=== PATIENT | male | born 1985 | race Caucasian/White ===

== ENCOUNTER 2018-07-09 01:26 | Inpatient (IN) | payer OTHER ==
[2018-07-09] VITALS (13 sets, daily range): BP systolic 125–169; BP diastolic 75–146
[~2018-07-09] VITALS: Ht 175.3 cm; Wt 78.5 kg
[2018-07-09] MEDS ORDERED: PROPRANOLOL 1010 MG (01:37)
[2018-07-09] MEDS ORDERED: LIORESAL 10 MG10 MG (01:37)
[2018-07-09] MEDS ORDERED: GABAPENTIN 100100 MG PO (01:37)
[2018-07-09] MEDS ORDERED: LIPITOR10 MG PO (01:37)
[2018-07-09] MEDS ORDERED: NORVASC2.5 MG PO (01:38)
[2018-07-09] MEDS ORDERED: QUETIAPINE FUM100 MG (01:38)
[2018-07-09] MEDS ORDERED: PRILOSEC 10MG C10 MG PO (01:38)
[2018-07-09] MEDS ORDERED: MYSOLINE50 MG (01:39)
[2018-07-09 01:46] LABS: HEMOGLOBIN 14.1 gm/dL (14.0-18.0); NUCLEATED RBCS 0 /100WBC
[2018-07-09 01:47] LABS: MCH 39.5 pg (26.0-34.0); MCHC 36.1 g/dL (28.0-37.0); MCV 109.3 fL (80.0-100.0); MPV 9.1 fl. (7.2-11.1); PLATELET COUNT* 105 thou/uL (150-400); RBC 3.57 mil/uL (4.50-6.00); RDW-CV 13.9 % (10.5-14.5); WBC 8.6 thou/uL (4.0-11.0)
[2018-07-09 01:54] LABS: CALCIUM 8.8 mg/dL (8.5-10.1); CREATININE 0.6 mg/dL (0.6-1.3)
[2018-07-09 01:58] LABS: ALBUMIN 2.7 g/dL (3.4-5.0); INR 1.1; TOTAL BILIRUBIN 4.8 mg/dL (<0.1-1.0); TOTAL PROTEIN 7.8 g/dL (6.4-8.2)
[2018-07-09 02:00] LABS: POTASSIUM 2.4 mmol/L (3.5-5.1)
[2018-07-09 02:45] LABS: ABSOLUTE LYMPHOCYTES 0.7 thou/uL (0.8-5.3); ABSOLUTE MONOCYTES 0.4 thou/uL (0.0-1.2); ABSOLUTE NEUTROPHILS 7.5 thou/uL (1.6-8.1); ANISOCYTOSIS 1+; PLATELET ESTIMATE DECREASED
[2018-07-09 02:46] LABS: MACROCYTES 1+; TOXIC GRANULATION 1+
[2018-07-09 06:11] LABS: URINE BLOOD TRACE (Negative); URINE CLARITY CLEAR; URINE COLOR YELLOW; URINE GLUCOSE-RANDOM NEGATIVE (Negative); URINE KETONES 1+ (Negative); URINE LEUKOCYTES-REFLEX NEGATIVE (Negative); URINE NITRITE-REFLEX NEGATIVE (Negative); URINE PROTEIN 2+ (Negative); URINE SPECIFIC GRAVITY <= 1.005 (1.005-1.030)
[2018-07-09 06:13] LABS: ICTOTEST (BILI CONFIRMATORY) Positive (Negative); URINE BILIRUBIN 2+ (Negative)
[2018-07-09 06:18] LABS: AMP/METHAMP Negative (Negative); BARBITURATES Negative (Negative); BENZODIAZEPINES Negative (Negative); COCAINE Negative (Negative); METHADONE Negative (Negative); OPIATES Negative (Negative); PCP Negative (Negative); THC Negative (Negative)
[2018-07-09 06:33] LABS: BACTERIA-REFLEX 1-9 Few /HPF (None Seen); CASTS None Seen /LPF (None Seen); CRYSTALS None Seen /LPF (None Seen); MUCUS 4-6 Moderate strn/LPF (None Seen); SQUAMOUS 0-3 Few /LPF (0-3); URINE RBC 0-2 Rare /HPF (0-2); URINE WBC-REFLEX 0-5 Rare /HPF (0-5)
--- NOTE | 2018-07-09 07:24 | NUR ---
RECEIVED REPORT FROM ED RN BJ AT 0345. PT ARRIVED TO UNIT AT 0400. 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 INITIAL CIWA SCORE: 10. SCHEDULED AND PRN ATIVAN ADMINISTERED. PT ORIENTED TO ROOM AND CALL LIGHT. HOURLY ROUNDING COMPLETED. CALL LIGHT WITHIN REACH. FALL PRECAUTIONS IN PLACE.
--- NOTE | 2018-07-09 16:56 | NUR ---
ASSUMED PT CARE REPORT RECEIVED FROM NIGHT NURSE. PT IS AOX2 CONFUSED, HALLUCINATING, AGITATED , AND HAVING MODERATE TREMORS. HEART RATE IN THE 140S 150S, BP STABLE SEE CHART. SEIZURE PRECAUTION IN PLACE. 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 PT WAS GIVEN ATIVAN Q30 MINUTES. SITTER IN ROOM FOR SAFETY REASON. 4 SIDERAILS UP. BANANA BAG AND IV FLUID INFUSING ORDERED. IV MAGNESIUM AND PO K REPLACEMENT GIVEN TO PT. LAB WILL BE CHECKED AGAIN IN THE MORNING. PROPALONOL WAS GIVEN FOR INCREASED HEART RATE. CIWA 20 THIS AM. Q HOUR VS CHARTED FROM THE FIRST 8 HOURS AFTER ADMISSIONS SEE CHART. PT THEN SLEPT AFTER FIFTH DOSE OF ATIVAN. NO MORE ATIVN GIVEN PT IS SLEEPING. PT AROUSED AT MEAL TIME . POOR APPETITE. IV LEVAQUIN WAS GIVEN LATER IN THE AM PT HAS MANY IV MEDICINE INFUSING AT ONCE. PRIMIDONE NOT AVAILABLE IN [place] AT TIME OF ORDER. PHARMACY WAS NOTIFIED. NO SIGNS OF AGITATION NOTED DURING AFTERNOON TIME. WILL CONTINUE TO MONITOR PT.
[2018-07-10] VITALS (18 sets, daily range): BP systolic 109–159; BP diastolic 74–111
--- NOTE | 2018-07-10 03:07 | NUR ---
PT ALERT OREIENTED. UP TO BED, BSC AND RECLINER. ATIVAN Q 3 MIN AT TIMES. NPO AT NM FOR ABD US.
[2018-07-10 05:07] LABS: ABSOLUTE LYMPHOCYTES 0.6 thou/uL (0.8-5.3); ABSOLUTE MONOCYTES 0.6 thou/uL (0.0-1.2); ABSOLUTE NEUTROPHILS 5.9 thou/uL (1.6-8.1); BASOPHILS 0.2 %; EOSINOPHILS 0.6 %; HEMATOCRIT 33.6 % (42.0-52.0); MCH 39.7 pg (26.0-34.0); MCHC 35.1 g/dL (28.0-37.0); MCV 113.2 fL (80.0-100.0); MONOCYTES 8.6 %; MPV 9.6 fl. (7.2-11.1); NUCLEATED RBCS 0 /100WBC; PLATELET COUNT* 100 thou/uL (150-400); POLYS 82.6 %; RBC 2.96 mil/uL (4.50-6.00); WBC 7.1 thou/uL (4.0-11.0)
--- NOTE | 2018-07-10 05:10 | NUR ---
PT CONTINUED WITH CIWA 12. ATIVAN WAS BEING GIVEN Q 30 MIN. SECURITY CALLED TWICE. DR JOHNSON NOTIFIED. VINCE ORDERED. PT RESTING QUIETLY NOW.
[2018-07-10 05:18] LABS: INR 1.1; PROTIME 10.8 Seconds (9.20-11.50)
[2018-07-10 05:23] LABS: HEMOGLOBIN 11.8 gm/dL (14.0-18.0)
[2018-07-10 05:36] LABS: ALBUMIN 2.2 g/dL (3.4-5.0); CALCIUM 7.8 mg/dL (8.5-10.1); CREATININE 0.5 mg/dL (0.6-1.3); MAGNESIUM 2.3 mg/dL (1.8-2.4); TOTAL BILIRUBIN 3.4 mg/dL (<0.1-1.0); TOTAL PROTEIN 6.3 g/dL (6.4-8.2)
[2018-07-10 05:49] LABS: POTASSIUM 2.9 mmol/L (3.5-5.1)
[2018-07-10 06:01] LABS: % SATURATION 30 % (20-39); IRON 52 ug/dL (50-175)
[2018-07-10 06:41] LABS: MACROCYTES 2+
[2018-07-10 06:42] LABS: PLATELET ESTIMATE DECREASED
--- NOTE | 2018-07-10 07:00 | NUR ---
AM K+ 2.9. POTASSIUM PROTOCAL STARTED. IVPB 20MEQ BAG 1ST OF 6 STARTED.
--- NOTE | 2018-07-10 09:03 | NUR ---
Pt agitated today, will f/u later
--- NOTE | 2018-07-10 10:26 | NUR ---
ASSUMED PT CARE REPORT RECEIVED FROM NURSE PT IS SLEEPING. VSS TAKEN. PT THEN WOKE UP WITH AGITATION AND INCREASES RESPIRATION. ATIVAN GIVEN X2 Q30 MINUTES ORDERED. SECOND BAG OF POTASSIUM GIVEN, IV FLUID STARTED WELL BANANA BAG. LEVAQUIN INFUSING AT THIS MOMENT. SITTER IN ROOM. PT IS INCONTINENT. 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 NPO STATUS MAINTAINED. NO PO MEDICINE GIVEN THIS AM. REPORT GIVEN TO ICU NURSE. PT TO GO TO ICU BED 8.
--- NOTE | 2018-07-10 10:47 | NUR ---
PT TRANSFERED TO ICU IN BED ACCOMPANIED BY 2 NURSING STAFF MEMBERS ON RA, 4 SIDE RAILS UP SEIZURE PRECAUTION.
[2018-07-10 11:10] LABS: IgG 896 mg/dL (700-1600); IgM 83 mg/dL (20-172)
--- NOTE | 2018-07-10 12:39 | EKG ---
[place] [address] ELECTROCARDIOGRAM REPORT Name: EVELYN AGUILA Room: [address] IN ..#: [id number] Admission: 07/09/18 Attend Phys: Tomi Banks MD Discharge: Date of : 81 Report #: [id number] THIS REPORT FOR: //name// [facility] ED Test Date: 2018-07-09 Test Time: 01:30:55 Pat Name: EVELYN AGUILA Department: Room: [facility] Gender: M Trouble Shooter: ADA : 1985 Requested By: Luz Washington Order Number: [id number] MD: Alejo Martinez Measurements Intervals [place] Rate: 118 P: 71 [place]: 156 QRS: 40 QRSD: 95 T: 22 QT: 341 QTc: 478 Interpretive Statements Sinus tachycardia Probable left atrial enlargement Probable anterolateral infarct, old Baseline wander in lead(s) II,III,aVR,aVL,aVF No previous ECG available for comparison Electronically Signed On 07-10-2018 12:39:39 CDT by Alejo Martinez [email or web address] <ELECTRONICALLY SIGNED> By: Alejo Martinez MD, [facility] 07/10/18 1239 0130 0130 Alejo Martinez MD, [facility] /EPI
[2018-07-10 15:09] LABS: HEPATITIS B SURFACE AG Negative (Negative)
--- NOTE | 2018-07-10 17:07 | 2DMMODE ---
[place] [address] 2 D/M-MODE ECHOCARDIOGRAM Name: EVELYN AGUILA Room: [address] IN [facility]#: [id number] Admission: 07/09/18 Attend Phys: Tomi Banks, Discharge: Date of : 81 Date of Service: 07/10/18 1706 Report #: [id number] THIS REPORT FOR: //name// APPROVED REPORT Study performed: 07/10/2018 15:22:16 EXAM: Comprehensive 2D, Doppler, and color-flow Echocardiogram Patient Location: In-Patient Room #: [facility] Status: routine BSA: 1.88 HR: 97 bpm BP: 141/97 mmHg Rhythm: NSR Other Information Study Quality: Good Indications Chest Pain 2D Dimensions IVSd: 10.29 (7-11mm) LVOT Diam: 19.88 (18-24mm) LVDd: 47.26 mm PWd: 9.98 (7-11mm) Ascending Ao: 31.88 (22-36mm) LVDs: 32.49 (25-40mm) Aortic Root: 34.12 mm Volumes Left Atrial Volume (Systole) LA ESV Index: 12.20 mL/m2 Aortic Valve AoV Peak Vernon.: 1.25 m/s AO Peak Gr.: 6.30 mmHg LVOT Max P.05 mmHg AO Mean Gr.: 3.54 mmHg LVOT Mean P.36 mmHg LVOT Max V: 1.33 m/s AO V2 VTI: 19.71 cm LVOT Mean V: 0.83 m/s DAVI (VTI): 3.61 cm2 LVOT V1 VTI: 22.92 cm Mitral Valve E/A Ratio: 0.75 MV Decel. Time: 93.45 ms MV E Max Vernon.: 0.68 m/[place] [address] 2 D/M-MODE ECHOCARDIOGRAM Name: EVELYN AGUILA Room: [address] IN [facility].#: [id number] Admission: 07/09/18 Attend Phys: Tomi Banks, Discharge: Date of : 81 Date of Service: 07/10/18 1706 Report #: [id number] MV PHT: 27.10 ms MVA (PHT): 8.12 cm2 TDI E/Lateral E': 5.23 E/Medial E': 7.56 Medial E' Vernon.: 0.09 m/s Lateral E' Vernon.: 0.13 m/s Pulmonary Valve PV Peak Vernon.: 0.97 m/s PV Peak Gr.: 3.73 mmHg Left Ventricle The left ventricle is normal size. There is normal LV segmental wall motion. There is normal left ventricular wall thickness. Left ventricular systolic function is normal. The left ventricular ejection fraction is within the normal range. LVEF is 60-65%. Grade I - abnormal relaxation pattern. Right Ventricle The right ventricle is normal size. The right ventricular systolic function is normal. Atria The left atrium size is normal. The right atrium size is normal. Aortic Valve The aortic valve is normal in structure. No aortic regurgitation is present. There is no aortic valvular stenosis. Mitral Valve The mitral valve is normal in structure. There is no mitral valve regurgitation noted. No evidence of mitral valve stenosis. Tricuspid Valve The tricuspid valve is normal in structure. There is no tricuspid valve regurgitation noted. Pulmonic Valve The pulmonary valve is normal in structure. There is no pulmonic valvular regurgitation. Great Vessels The aortic root is normal in size. IVC is normal in size and collapses >50% [place] [address] 2 D/M-MODE ECHOCARDIOGRAM Name: EVELYN AGUILA Room: [address]#: [id number] Admission: 07/09/18 Attend Phys: Tomi Banks, Discharge: Date of : 81 Date of Service: 07/10/18 1706 Report #: [id number] Pericardium There is no pericardial effusion. <Conclusion> The left ventricle is normal size. There is normal left ventricular wall thickness. Left ventricular systolic function is normal. The left ventricular ejection fraction is within the normal range. LVEF is 60-65%. Grade I - abnormal relaxation pattern. The right ventricle is normal size. The left atrium size is normal. The aortic valve is normal in structure. The mitral valve is normal in structure. The tricuspid valve is normal in structure. IVC is normal in size and collapses >50% with inspiration. There is no pericardial effusion. There is normal LV segmental wall motion. <ELECTRONICALLY SIGNED> By: Alejo Martinez MD, [facility] 07/10/18 1706 05 05 Alejo Martinez MD, FACC /INF
--- NOTE | 2018-07-10 18:10 | NUR ---
PATIENT CIWAS REMAIN HIGH AT THIS TIME. MANY DOSES OF ATIVAN GIVEN PER PROTOCOL. FLUIDS INFUSING. SITTER AT BEDSIDE FOR SAFTEY, PATIENT CONTINUOUSLY CRAWLING OUT OF BED, VERY UNSTEADY. HIGH FALL PRECAUTIONS IN PLACE, CALL LIGHT IN REACH.
--- NOTE | 2018-07-10 18:47 | NUR ---
UNABLE TO COMPLETE CTA OF CHEST DUE TO PATIENT BEING AGITATED, RESTLESS AND UNABLE TO SIT STILL FOR PROCEDURE. WILL TRY AGAIN TOMORROW.
[2018-07-11] VITALS (16 sets, daily range): BP systolic 106–145; BP diastolic 67–104
[2018-07-11 05:28] LABS: ABSOLUTE EOSINOPHILS 0.1 thou/uL (0.0-0.7); ABSOLUTE LYMPHOCYTES 1.3 thou/uL (0.8-5.3); ABSOLUTE MONOCYTES 1.1 thou/uL (0.0-1.2); ABSOLUTE NEUTROPHILS 3.8 thou/uL (1.6-8.1); BASOPHILS 0.6 %; EOSINOPHILS 1.9 %; HEMATOCRIT 33.6 % (42.0-52.0); HEMOGLOBIN 11.7 gm/dL (14.0-18.0); MCH 39.2 pg (26.0-34.0); MCHC 34.7 g/dL (28.0-37.0); MCV 112.9 fL (80.0-100.0); MONOCYTES 16.9 %; MPV 8.9 fl. (7.2-11.1); NUCLEATED RBCS 1 /100WBC; PLATELET COUNT* 118 thou/uL (150-400); POLYS 60.6 %; RBC 2.98 mil/uL (4.50-6.00); WBC 6.3 thou/uL (4.0-11.0)
[2018-07-11 06:06] LABS: ALBUMIN 2.2 g/dL (3.4-5.0); CALCIUM 8.5 mg/dL (8.5-10.1); CREATININE 0.5 mg/dL (0.6-1.3); MAGNESIUM 1.7 mg/dL (1.8-2.4); POTASSIUM 3.4 mmol/L (3.5-5.1); TOTAL BILIRUBIN 2.8 mg/dL (<0.1-1.0); TOTAL PROTEIN 6.6 g/dL (6.4-8.2)
--- NOTE | 2018-07-11 06:33 | NUR ---
ASSUMED CARE AT 1915H. PT ON BED BUT MOST OF THE TIME WANT TO GET OUT OF BED. PT STILL CONFUSED AND WITH VISUAL HALLUCINTION NOTED. LATEST CIWA - 25 AND LORAZEPAM AND HALDOL GIVEN TO CALM PT.WITHDRAWAL MONITORING CONTINUE.
[2018-07-11 10:28] LABS: MAGNESIUM 1.9 mg/dL (1.8-2.4); POTASSIUM 3.4 mmol/L (3.5-5.1)
--- NOTE | 2018-07-11 12:45 | NUR ---
PATIENT REMIANS ALERT TO SELF ONLY WITH CONFUSION. PATIENT DOES HAVE SOME HALLUCINATIONS THAT HAVE BEEN NOTICED THIS SHIFT. PATIENT CAN BECOME VERY AGITATED QUICKLY. ATIVAN AND HALDOL GIVEN. PATIENT STARTED BACK ON ORAL MEDICATIONS. SEROQUEL GIVEN AND IS VERY EFFECTIVE. PATIENT RESTING AT THIS TIME WITH EYES CLOSED. PATIENT TOLERATED GOING FOR CTA AND PA/LAT XRAY COMPLETE WITHOUT DIFFICULTY. PREVIOUS CIWA 25. SITTER AT BEDSIDE. NO FURTHER CONCERNS AT THIS TIME. WILL CONTINUE TO MONITOR AND CARE PER PLAN OF CARE.
[2018-07-11 16:06] LABS: CERULOPLASMIN 23.9 mg/dL (16.0-31.0)
[2018-07-12] VITALS (20 sets, daily range): BP systolic 100–135; BP diastolic 74–97
--- NOTE | 2018-07-12 00:04 | NUR ---
TRANSFERED PT ROOM 6 CLOSER TO NURSING STATION PT IS DROWSY AND CONFUSED, ASKING ABOUT HIS CIGARETTES. PT IS CALM AT BUT FORGETFULL. WILL MONITOR PT.
[2018-07-12 04:45] LABS: HEMATOCRIT 34.8 % (42.0-52.0); MCH 39.2 pg (26.0-34.0); MCHC 34.5 g/dL (28.0-37.0); MCV 113.5 fL (80.0-100.0); MPV 8.9 fl. (7.2-11.1); RBC 3.06 mil/uL (4.50-6.00); RDW-CV 13.9 % (10.5-14.5); WBC 7.7 thou/uL (4.0-11.0)
[2018-07-12 05:04] LABS: ALBUMIN 2.2 g/dL (3.4-5.0); CALCIUM 8.7 mg/dL (8.5-10.1); CREATININE 0.6 mg/dL (0.6-1.3); MAGNESIUM 1.6 mg/dL (1.8-2.4); PHOSPHORUS* 2.5 mg/dL (2.5-4.9); POTASSIUM 3.7 mmol/L (3.5-5.1); TOTAL BILIRUBIN 2.5 mg/dL (<0.1-1.0); TOTAL PROTEIN 6.6 g/dL (6.4-8.2)
--- NOTE | 2018-07-12 07:13 | NUR ---
Pt has been calm and cooperative but forgetfull, attemped to get out of bed couple of times stating that he was going to smoke, pt can re-direct easily, ciwa score 6 t0 8 overnight, po ativan given this am. MG level low and being replaced currently.
[2018-07-12 10:21] LABS: MAGNESIUM 1.9 mg/dL (1.8-2.4); POTASSIUM 3.2 mmol/L (3.5-5.1)
[2018-07-12 15:30] LABS: MAGNESIUM 1.6 mg/dL (1.8-2.4)
--- NOTE | 2018-07-12 17:34 | NUR ---
07/12 Days: CIWAL between 5-11, PRN ativan PO x3 doses. Patient more alert and now a/o x4 this afternoon. Plan for EGD tomorrow and liver biopsy on tuesday. Consent for EGD signed and in front of chart. Up with stand-by assist, weak in the legs. Up in recliner for most of the day. Fair appetitie, 50% or > intake on meals. 2L o2 while sleeping d/t small dips to upper 80's. NPO at midnight except clears until 8 am for EGD around 1 pm. Electrolytes replaced- total of 2g mag IV and 1600mg PO and 80 mEq of K+.
[2018-07-13] VITALS (13 sets, daily range): BP systolic 103–144; BP diastolic 71–101
[2018-07-13 02:40] LABS: HEMATOCRIT 36.2 % (42.0-52.0); HEMOGLOBIN 12.5 gm/dL (14.0-18.0); MCH 39.1 pg (26.0-34.0); MCHC 34.5 g/dL (28.0-37.0); MCV 113.3 fL (80.0-100.0); MPV 8.7 fl. (7.2-11.1); RBC 3.19 mil/uL (4.50-6.00); RDW-CV 14.3 % (10.5-14.5)
[2018-07-13 02:49] LABS: PROTIME 10.3 Seconds (9.20-11.50)
[2018-07-13 02:59] LABS: ALBUMIN 2.6 g/dL (3.4-5.0); CALCIUM 8.7 mg/dL (8.5-10.1); CREATININE 0.6 mg/dL (0.6-1.3); MAGNESIUM 1.8 mg/dL (1.8-2.4); POTASSIUM 3.8 mmol/L (3.5-5.1); TOTAL PROTEIN 7.2 g/dL (6.4-8.2)
--- NOTE | 2018-07-13 06:01 | NUR ---
REPORT RECEIVED FROM OFF GOING SHIFT AND CARE ASSUMMED. PT STARTED SHIFT ALERT AND ORIENTED, BUT QUICKLY BECAME CONFUSED. CIWAS INCREASED. 5-11. PT IS INCONTINENT OF STOOL AND BLADDER SEVERAL TIMES DURING SHIFT. PT IS VERY IMPULSIVE AND OFTEN WILL NOT FOLLOW INSTRUCTIONS. PT HAS PULLED MONITORS AND LINES OFF REPEATEDLY THIS SHIFT. PT IS CONFUSED TO WHAT IS WRONG WITH HIM AND WHAT IS SCHEDULED THE SHIFT GOES ON., WAS AWARE AT BEGINNING OF SHIFT. VSS WILL CONTINUE TO MONITOR.
[2018-07-13 16:11] LABS: ANA INTERPRETATION Negative (Negative)
--- NOTE | 2018-07-13 19:26 | NUR ---
PATIENT IS ALERT AND ORIENTED TO TIME, PLACE AND PERSON BUT NOT TO SITUATION AND IS CONFUSED AND FORGETFUL. VSS. INCONTINENT OF THE URINE AND TRIES TO GET OUT OF THE BED FREQUENTLY, STATES HE WANTS TO GO TO THE [place] TO SMOKE, TO THE GARAGE TO GET SOME STUFFS ETC. HALDOL 5MG ADMINISTERED ONCE AT 1600. CIWA SCORE 5,8,5 THIS SHIFT. EGD DONE TODAY IN THE OR. HE IS TO BE KEPT MIDNIGHT NPO FOR US GUIDED LIVER BIOPSY TOMORROW AT 1100.
--- NOTE | 2018-07-13 22:51 | NUR ---
PO MEDS HELD AT SCHEDULED TIME DUE TO SOMNOLENCE. PT NOW ALERT AND ORIENTED, HS MEDS GIVEN ORDERED.
[2018-07-14] VITALS (29 sets, daily range): BP systolic 87–160; BP diastolic 49–97
[2018-07-14 02:10] LABS: ABSOLUTE BASOPHILS 0.1 thou/uL (0.0-0.2); ABSOLUTE EOSINOPHILS 0.1 thou/uL (0.0-0.7); ABSOLUTE LYMPHOCYTES 0.9 thou/uL (0.8-5.3); ABSOLUTE NEUTROPHILS 5.2 thou/uL (1.6-8.1); BASOPHILS 0.9 %; EOSINOPHILS 1.7 %; HEMATOCRIT 35.1 % (42.0-52.0); HEMOGLOBIN 11.9 gm/dL (14.0-18.0); LYMPHOCYTES 12.3 %; MCH 38.3 pg (26.0-34.0); MCV 112.7 fL (80.0-100.0); MONOCYTES 13.1 %; MPV 9.2 fl. (7.2-11.1); NUCLEATED RBCS 0 /100WBC; PLATELET COUNT* 287 thou/uL (150-400); RBC 3.12 mil/uL (4.50-6.00); RDW-CV 14.2 % (10.5-14.5); WBC 7.3 thou/uL (4.0-11.0)
[2018-07-14 02:13] LABS: INR 1.1
[2018-07-14 02:19] LABS: ALBUMIN 2.3 g/dL (3.4-5.0); CALCIUM 8.7 mg/dL (8.5-10.1); CREATININE 0.6 mg/dL (0.6-1.3); POTASSIUM 3.3 mmol/L (3.5-5.1); TOTAL BILIRUBIN 1.7 mg/dL (<0.1-1.0); TOTAL PROTEIN 6.6 g/dL (6.4-8.2)
[2018-07-14 02:27] LABS: ANISOCYTOSIS Occasional; MACROCYTES 2+; PLATELET ESTIMATE ADEQUATE; POLYCHROMASIA 1+
--- NOTE | 2018-07-14 03:48 | NUR ---
PT AWAKE X2 HRS, A/O X4, COOPERATIVE AND APPROPRIATE. ONCE COMPLETE ORIENTATION CONFIRMED, PT EDUCATED ON US GUIDED LIVER BIOPSY TO BE PERFORMED AT 1100 TODAY. PT STATED HE FELT COMFORTABLE SIGNING HIS CONSENT FORM AT THIS TIME, HE WAS ABLE TO TEACH BACK INFORMATION PROVIDED ABOUT BIOPSY. CONSENT FORM SIGNED AT 0340 WITNESSED BY THIS RN. PT REQUESTING SOMETHING FOR ANXIETY AND SLEEP, EDUCATED THAT SLEEP MEDS CAN NOT BE GIVEN THIS LATE IN THE NIGHT, VERBALIZED UNDERSTANDING. PRN HALDOL GIVEN ORDERED.
--- NOTE | 2018-07-14 07:01 | NUR ---
PT REMAINS ORIENTED WITH COOPERATIVE AND APPROPRIATE AFFECT. PT HAS BEEN NPO SINCE MDN FOR US GUIDED LIVER BIOPSY THIS MORNING. PT C/O BACK AND ARM PAIN IN THE NIGHT, REPORTS BACK PAIN IS CHRONIC SINCE A NECK/BACK INJURY WITHIN THE LAST FEW YEARS. DR JOHNSON NOTIFIED, ORDERS RECEIVED. POTASSIUM LOW THIS AM, REPLACEMENT INFUSING PER PROTOCOL. CALL LIGHT WITHIN REACH.
--- NOTE | 2018-07-14 10:33 | NUR ---
PATIENT IS AWAKE, ALERT AND ORIENTED x4. VSS. VOIDED PER URINAL. NPO FOR US GUIDED LIVER BIOPSY TODAY. TRANSFERRED TO TELE VIA WHEELCHAIR.
[2018-07-15] VITALS: BP 125/91
[2018-07-15 04:00] VITALS: BP 131/85
[2018-07-15 07:00] VITALS: BP 137/87
--- NOTE | 2018-07-15 07:40 | NUR ---
RECEIVED REPORT AND ASSUMED CARE AT 1900. BP SOFT. OTHERWISE VSS. PHYSICIAN NOTIFIED, ORDERS RECIEVED. ASSESSMENT COMPLETED CHARTED. REPORTED PAIN, PRN MEDICATION ADMIN PER ORDERS. BED LOCKED IN LOWEST POSITION, CALL LIGHT WITHIN REACH, BED ALARM ON. HOURLY ROUNDING COMPLETED AND ALL NEEDS MET.
--- NOTE | 2018-07-15 11:18 | NUR ---
INITAL ASSESSMENT COMPLETED. VSS. TRACING SR-ST ON MONITOR. FAMILY AT BEDSIDE AT THIS TIME. IVF INFUSING ORDERED. MEDS GIVEN PER EMAR. PT IS ANXIOUS THIS A.M. OTHERWISE NOT DISPLATING ANY OTHER SIGNS OF WITHDRAWL. HOURLY ROUNDING IN PLACE FOR PT SAFETY. CLWR.
--- NOTE | 2018-07-15 11:31 | NUR ---
Pt discharging to home today, provided Pt and mom with ETOH community resources.
[2018-07-15] MEDS ORDERED: XANAX 0.5 MG0.5 MG PO (11:41)
[2018-07-15 11:43] VITALS: BP 137/87
--- NOTE | 2018-07-15 12:32 | CON ---
[facility] [address] [place] [address] CONSULTATION Name: EVELYN AGUILA Room: [address] IN M.R.#: [id number] Admission: 07/09/18 Attend Phys: Mikey Banks MD Discharge: 07/15/18 Date of : 81 Report #: [id number] THIS REPORT FOR: //name// CC: IMKEY Banks FAM physician/PCP DATE OF SERVICE: 07/09/2018 REFERRING PHYSICIAN: Mikey Banks M.D. The patient has no primary care provider. REASON FOR CONSULTATION: Elevated LFTs. IMPRESSION: 1. Alcoholic hepatitis, which is mild in nature - the patient is not a candidate for steroids as his Maddrey's discriminant function score is only 5 and it needs to be greater than 32 to benefit from steroids. 2. Severe hepatomegaly with fatty infiltration of the liver secondary to alcoholic hepatitis, which is mild in nature and chronic alcohol abuse. 3. Jaundice secondary to alcoholic hepatitis, which is mild in nature - no evidence for biliary obstruction. 4. Alcohol withdrawal, with the patient currently going through the same. 5. Pneumonia and/or pneumonitis. 6. Abnormal CAT scan of the colon, suggestive of colitis - no history of chronic diarrhea at this time, but we will discuss with the patient what has been going on with his bowels before we consider any endoscopic studies. 7. Mild thrombocytopenia - cannot rule out portal hypertension from advanced liver disease or just due to alcoholic hepatitis. RECOMMENDATIONS: 1. Agree with the patient being admitted for IV fluids, IV antibiotics, alcohol withdrawal precautions, etc. 2. We will check other serologic studies for his elevated LFTs - the patient may need to have a liver biopsy done during this hospital stay. 3. We will wait for the patient to completely recover from his alcohol withdrawal before we would even consider any endoscopic studies of his upper or lower GI tract. 4. He, absolutely, positively needs to discontinue alcohol completely and be given medications upon discharge to help with the same in the form of Campral 333 mg 2 tablets 3 times daily. I will discuss these recommendations with the patient and his , Citlali, when the patient is much more lucid and can benefit from that discussion. 5. At the present time, no family was available to discuss these plans for his care. I did, however, discuss this with [place] [address] CONSULTATION Name: EVELYN AGUILA Room: [address]#: [id number] Admission: 07/09/18 Attend Phys: Mikey Banks MD Discharge: 07/15/18 Date of : 81 Report #: [id number] HISTORY OF PRESENT ILLNESS: The patient is a 32-year-old male who was admitted to the hospital because of problems with abdominal pain and palpitations. He has a long-standing history of chronic alcohol abuse and drank as much as 6 shots of vodka the night before admission. The patient has already been through rehab in the past, but he restarted drinking in January, shortly after getting out of rehabilitation. He has not been taking any of his medication as well. He had been having problem with nausea, vomiting, abdominal pain and a poor appetite. He was seen through the Emergency Room and admitted to hospital for further evaluation and treatment. ALLERGIES: None. MEDICATIONS: Medications at home that he is supposed to be on include Neurontin, Lipitor, Inderal, baclofen, Seroquel, Prilosec, Norvasc and Mysoline. PAST MEDICAL HISTORY: His past medical history is not known, but guessing from his medications, he has history of hypertension and hyperlipidemia. He has got some anxiety, depression and chronic reflux. It is unclear why he is on Mysoline. SOCIAL HISTORY: I am not able to review with the patient, but per the Emergency Room, he smokes a pack per day and drinks whiskey on a daily basis. FAMILY HISTORY: Not known. PHYSICAL EXAMINATION: GENERAL: Revealed an ill-appearing 32-year-old gentleman, who is currently asleep because he is on alcohol withdrawal precaution and had been getting Ativan. CARDIOPULMONARY EXAMINATION: Revealed a tachycardic rate and rhythm. LUNGS: Clear. ABDOMEN: Soft. He does have a very large liver. No ascites was notable. LABORATORY DATA: His laboratory tests from this morning revealed a white count of 8.6, hemoglobin 14.1, platelet count 105,000, MCV is 109.3 and RDW is 13.9. His sodium 130, potassium 3.4, chloride is 86, bicarb is 29, his BUN is 11 and creatinine 0.6. Total bilirubin 4.8, alkaline phosphatase is 866, AST 256 and ALT 233. Albumin is 2.7. His protime is 11.0 with an INR of 1.1. His urine drug screen was completely negative. CT scan of the abdomen and pelvis was reviewed and reveals a massively very large liver with fatty infiltration of the liver. There is no splenomegaly or ascites. This study was done with IV contrast only. There was some suggestions that the patient has diffuse colitis, but this could be related to hypoalbuminemic to a low albumin state. This could [place] [address] CONSULTATION Name: EVELYN AGUILA Room: [address] IN [facility]#: [id number] Admission: 07/09/18 Attend Phys: Mikey Banks MD Discharge: 07/15/18 Date of : 81 Report #: [id number] secondary to incomplete distention. DISCUSSION: At the present time, the patient needs to go through his alcohol withdrawal and hopefully, he will come out from the same. Once he is more lucid, we can discuss whether or not he is having issues with chronic diarrhea and determine whether or not he needs to have any endoscopic studies. As I mentioned above, we will check some other serologic studies at this point in time and make further recommendations thereafter. <ELECTRONICALLY SIGNED> By: Vijay Oh DO 07/15/18 1232 1525 0146Vijay Oh DO /nt
--- NOTE | 2018-07-19 17:12 | PATH ---
[address] [address] PATHOLOGY RPT PROCEDURE Name: EVELYN ZHOU Room: [address] IN M.R.#: [id number] Admission: 07/09/18 Date of : 81 Discharge: 07/15/18 Report #: [id number] Path Case #: [id number] [facility] Accession Number: [id number] . 01 Material submitted: . liver - LIVER BIOPSY . 01 Clinical history: . Abnormal LFT's, chronic alcohol abuse . 02 Diagnosis: Liver biopsy: - Benign liver with marked (approximately 80%), predominantly macrovesicular steatosis and mild lobular inflammation compatible with alcoholic steatohepatitis, without significant fibrosis. See comment. (BRYAN:wallace; 07/19/2018) CLYDE/07/19/2018 . 02 Comment: The core biopsies show prominent steatosis with scattered lobular inflammation including occasional neutrophils but predominantly foci of lymphocytes (less than 2 foci per 20x field) and foci of hepatocellular ballooning fibrosis (mild/few) and scattered Yany's hyaline. Bile ducts are present in portal tracts which show minimal inflammation. Properly controlled special stains performed on each of A1 through A3 all show similar results as follows: . Iron: Rare uptake in Kupffer cells. Trichrome: No significant fibrosis. Reticulin: Hepatic plates intact with some distortion from steatosis. PAS with and without diastase: No PAS positive diastase resistant globules. . Reviewed with Dr. Lowell Avila who agrees with the diagnosis. . (BRYAN:director industrial; 07/19/2018) . 02 Electronically signed: . Michael Judge MD, Pathologist NPI- [id number] . 01 Gross description: . Received in formalin labeled "Evelyn Zhou, liver biopsy," are 3 distinct needle cores of watson soft tissue ranging from 1.8-2.4 cm in length and measuring less than 0.1 cm each in diameter. The specimen is submitted entirely in cassettes A1 through A3. (TSD; 07/14/2018) TOB/[place] [address] PATHOLOGY RPT PROCEDURE Name: EVELYN ZHOU Room: [address] IN M.R.#: [id number] Admission: 07/09/18 Date of : 81 Discharge: 07/15/18 Report #: [id number] Path Case #: [id number] . 02 Pathologist provided ICD-10: K70.0, F10.10 . 02 CPT . 214306, 210335, 135210, 798660, 137162, 736515, 833745, 415122, 949155, 308303, 735877, 645242, 177219 Specimen Comment: A courtesy copy of this report has been sent to Specimen Comment: [phone], . Specimen Comment: Report sent to DR FU / BARBIE Performed at: [address], [place], [place] [id number] MD Grey Yeager MD Phone: [phone] Performed at: 02 [facility] [address], [place], [place] [id number] MD Michael Judge MD Phone: [phone]
== END 2018-07-15 12:14 | disposition home or self-care (01) | DRG 177 ==
LOC: M.ERS 01:26 → M.TBA-ER 02:20 → M.2W 03:49 → M.ICU 03:49 → M.TBA-ER 03:49 → M.2W 04:09 → M.ICU 07-10 10:55 → M.2W 07-14 10:38
PROVIDERS: Emergency Medicine; Internal Medicine; Internal Medicine Gastroenterology; Nurse Practitioner Adult Health; ADMIT Internal Medicine
PROC: 0DJ08ZZ Inspection of Upper Intestinal Tract, Via Natural or Artificial Opening Endoscopic (ICD-10-PCS; principal; 2018-07-13)
DX: J15.6 Pneumonia due to other Gram-negative bacteria (principal); E43 Unspecified severe protein-calorie malnutrition; G93.41 Metabolic encephalopathy; E87.2 Acidosis; F10.230 Alcohol dependence with withdrawal, uncomplicated; K76.6 Portal hypertension; B37.81 Candidal esophagitis; I85.10 Secondary esophageal varices without bleeding; K70.10 Alcoholic hepatitis without ascites; I10 Essential (primary) hypertension; E78.00 Pure hypercholesterolemia, unspecified; E87.6 Hypokalemia; E83.42 Hypomagnesemia; K70.0 Alcoholic fatty liver; D69.6 Thrombocytopenia, unspecified; F41.9 Anxiety disorder, unspecified; F32.9 Major depressive disorder, single episode, unspecified; K21.0 Gastro-esophageal reflux disease with esophagitis; K22.70 Barrett's esophagus without dysplasia; K44.9 Diaphragmatic hernia without obstruction or gangrene; K31.89 Other diseases of stomach and duodenum; K58.0 Irritable bowel syndrome with diarrhea; F19.10 Other psychoactive substance abuse, uncomplicated; F17.210 Nicotine dependence, cigarettes, uncomplicated; Z68.25 Body mass index [BMI] 25.0-25.9, adult; Z71.41 Alcohol abuse counseling and surveillance of alcoholic; Z79.899 Other long term (current) drug therapy